=== PATIENT | female | born 1940 | race Caucasian/White ===

== ENCOUNTER 2023-12-03 17:45 | Observation (INO) ==
[2023-12-03 19:01] LABS: ABS Lymphocytes 1.1 10^3/uL (1.0-4.8); ABS Monocytes 0.9 10^3/uL (0.0-0.9); ABS Neutrophils 5.1 10^3/uL (1.5-7.6); Eosinophil % 0.4 %; Hematocrit 42.7 % (35-45); Hemoglobin 14.7 g/dL (11.5-14.3); Lymphocyte % 14.9 %; Mean Corpuscular Hemoglobin 32.7 pg (27-33); Mean Corpuscular Hgb Conc 34.5 g/dL (31-36); Mean Corpuscular Volume 94.9 fL (80-97); Mean Platelet Volume 8.6 fL (7.5-11.2); Platelet Count 220 10^3/uL (150-450); Red Cell Distribution Width 12.6 % (12-17); White Blood Count 7.1 10^3/uL (3.8-11.8)
[2023-12-03 19:25] LABS: High Sens Troponin Baseline 4 pg/mL (<15)
[2023-12-03 19:39] LABS: ALT 40 U/L (7-52); AST 70 U/L (13-39); Acetaminophen < 15 mcg/mL; Albumin 4.4 g/dL (3.2-5.2); Albumin/Globulin Ratio 1.4 (1-3); Alkaline Phosphatase 138 U/L (35-149); Anion Gap 11 mmol/L (2-16); Blood Urea Nitrogen 27 mg/dL (6-24); C Reactive Protein 14.66 mg/L (<8.01); CO2 Carbon Dioxide 22 mmol/L (22-32); Calcium 10.1 mg/dL (8.6-10.3); Chloride 92 mmol/L (101-111); Creatine Kinase 97 U/L (10-223); Globulin 3.2 g/dL (2-4); Glucose 119 mg/dL (70-100); Magnesium 1.7 mg/dL (1.9-2.7); Potassium 3.3 mmol/L (3.5-5.0); Salicylate < 2.50 mg/dL (<30); Sodium 125 mmol/L (135-145); Total Bilirubin 1.9 mg/dL (0.2-1.0); Total Protein 7.6 g/dL (6.4-8.9); eGFR CKD-EPI 44.6 (>60)
[2023-12-03] MEDS: Magnesium Sulfate 2 gm BAG 2 GM/50 ML BAG IVPB ONE (20:03)
[2023-12-03] MEDS: Lactated Ringers 1000 ml BAG 1,000 ML IV ONE (20:04)
[2023-12-03 20:40] LABS: High Sensitivity Troponin 1 Hr 4 pg/mL (<15)
[2023-12-03] MEDS: NS 0.9% 1000 ml BAG 1,000 ML IV SCH (23:48)
[2023-12-03] MEDS: Enoxaparin 40 MG/0.4 ML SYR SUBCUT SCH (23:48)
[2023-12-04 01:22] LABS: Calcium 9.1 mg/dL (8.6-10.3); Creatinine, Serum 0.94 mg/dL (0.51-0.95); Potassium 3.1 mmol/L (3.5-5.0); eGFR CKD-EPI 59.8 (>60)
[2023-12-04] MEDS: KCL 20 MEQ/100 ML IVPREMIX 20 MEQ/100 ML BAG IV SCH (02:33)
[2023-12-04 02:50] LABS: Urine Appearance Clear; Urine Bilirubin Negative (Negative); Urine Blood Negative (Negative); Urine Color Yellow; Urine Glucose Negative (Negative); Urine Ketones Negative (Negative); Urine Nitrite Negative (Negative); Urine Protein Negative (Negative); Urine Specific Gravity 1.013 (1.002-1.030); Urine Urobilinogen Negative (Negative)
[2023-12-04 05:32] LABS: ABS Lymphocytes 1.6 10^3/uL (1.0-4.8); ABS Neutrophils 4.5 10^3/uL (1.5-7.6); Eosinophil % 0.5 %; Hemoglobin 13.8 g/dL (11.5-14.3); Lymphocyte % 22.4 %; Mean Corpuscular Hemoglobin 33.3 pg (27-33); Mean Corpuscular Hgb Conc 34.5 g/dL (31-36); Mean Corpuscular Volume 96.5 fL (80-97); Mean Platelet Volume 8.6 fL (7.5-11.2); Nucleated Red Blood Cells % 0.1 %/100WBC (0.0-0.8); Platelet Count 183 10^3/uL (150-450); Red Blood Count 4.14 10^6/uL (3.63-4.92); Red Cell Distribution Width 12.8 % (12-17); White Blood Count 7.1 10^3/uL (3.8-11.8)
[2023-12-04 06:10] LABS: Creatinine, Serum 0.93 mg/dL (0.51-0.95); Magnesium 2.1 mg/dL (1.9-2.7); Potassium 3.6 mmol/L (3.5-5.0); eGFR CKD-EPI 60.6 (>60)
[2023-12-04] MEDS: CMCS: Anastrozole 1 mg TAB (NF) PO SCH (10:15)
[2023-12-04] MEDS: NS 0.9% 1000 ml BAG 1,000 ML IV SCH (17:57)
[2023-12-05 06:33] LABS: ABS Lymphocytes 1.6 10^3/uL (1.0-4.8); ABS Monocytes 0.9 10^3/uL (0.0-0.9); ABS Neutrophils 4.4 10^3/uL (1.5-7.6); Eosinophil % 0.5 %; Hematocrit 37.5 % (35-45); Hemoglobin 12.9 g/dL (11.5-14.3); Lymphocyte % 22.5 %; Mean Corpuscular Hemoglobin 32.9 pg (27-33); Mean Corpuscular Hgb Conc 34.5 g/dL (31-36); Mean Corpuscular Volume 95.5 fL (80-97); Mean Platelet Volume 8.6 fL (7.5-11.2); Platelet Count 197 10^3/uL (150-450); Red Blood Count 3.93 10^6/uL (3.63-4.92); Red Cell Distribution Width 12.8 % (12-17); White Blood Count 6.9 10^3/uL (3.8-11.8)
[2023-12-05 07:11] LABS: Calcium 8.7 mg/dL (8.6-10.3); Creatinine, Serum 0.71 mg/dL (0.51-0.95); Potassium 2.7 mmol/L (3.5-5.0); eGFR CKD-EPI 83.8 (>60)
[2023-12-05 09:13] LABS: Magnesium 1.7 mg/dL (1.9-2.7)
[2023-12-05] MEDS: Potassium Chlor 20 meq TAB.ER PO ONE (09:38)
[2023-12-05] MEDS: KCL 20 MEQ/100 ML IVPREMIX 20 MEQ/100 ML BAG IV SCH (09:44)
[2023-12-05] MEDS: Magnesium Sulfate 2 gm BAG 2 GM/50 ML BAG IVPB ONE (10:23)
[2023-12-05] MEDS: KCL 20 MEQ/100 ML IVPREMIX 20 MEQ/100 ML BAG IV ONE (19:55)
[2023-12-06 05:52] LABS: Calcium 8.7 mg/dL (8.6-10.3); Creatinine, Serum 0.76 mg/dL (0.51-0.95); Magnesium 1.8 mg/dL (1.9-2.7); Potassium 3.6 mmol/L (3.5-5.0); eGFR CKD-EPI 77.2 (>60)
[2023-12-06] MEDS: Magnesium Sulfate IV 1GM/100ML 1 GM/100 ML BAG IV ONE (08:10)
[2023-12-06 11:12] LABS: ABS Basophils 0.1 10^3/uL (0.0-0.1); ABS Lymphocytes 1.9 10^3/uL (1.0-4.8); ABS Monocytes 1.2 10^3/uL (0.0-0.9); ABS Neutrophils 4.5 10^3/uL (1.5-7.6); Eosinophil % 0.4 %; Hematocrit 36.7 % (35-45); Hemoglobin 12.3 g/dL (11.5-14.3); Lymphocyte % 24.9 %; Mean Corpuscular Hemoglobin 32.3 pg (27-33); Mean Corpuscular Hgb Conc 33.5 g/dL (31-36); Mean Corpuscular Volume 96.4 fL (80-97); Mean Platelet Volume 9.5 fL (7.5-11.2); Platelet Count 191 10^3/uL (150-450); Red Blood Count 3.81 10^6/uL (3.63-4.92); Red Cell Distribution Width 12.9 % (12-17); White Blood Count 7.8 10^3/uL (3.8-11.8)
[2023-12-06] MEDS: Potassium Chlor 20 meq TAB.ER PO ONE (16:09)
[2023-12-06 16:45] VITALS: BP 121/77
== END 2023-12-06 17:27 | disposition home or self-care (01) ==
LOC: ED 17:45 → EDHOLD 17:45 → SUATTDRO 21:35 → MED 12-04 15:45
PROVIDERS: ADMIT Internal Medicine; ATTEND Student in an Organized Health Care Education/Training Program